=== PATIENT | male | born 1985 | race American Indian/Alaskan Native ===

== ENCOUNTER 2017-01-02 23:26 | Emergency (ER) | payer MEDICAID ==
[2017-01-02] MEDS ORDERED: TYLENOL ONE (23:35)
[2017-01-02 23:38] VITALS: BP 112/69
[2017-01-02] MEDS ORDERED: TYLENOL PO ONE (23:38)
[2017-01-03] MEDS ORDERED: TORADOL ONE (05:04)
== END 2017-01-03 06:15 | disposition home or self-care (01) ==
LOC: ED 23:26
DX: M54.5 Low back pain (principal)
CPT/HCPCS: 99282; J1885